=== PATIENT | female | born 1975 | race Caucasian/White ===

== ENCOUNTER 2017-08-18 22:35 | Emergency (ER) | payer OTHER ==
[~2017-08-18] VITALS: Ht 160 cm; Wt 55.0 kg
[~2017-08-18 22:35] MED LIST: CLEO1SOL EX; CLIN1CAP6 PO; DIFL150T PO; IBUP800T23 PO; MELO15 PO; MOTR200T PO
[2017-08-18 23:00] VITALS: BP 147/85; PULSE 128; RESP 18; TEMP 97.7
--- NOTE | 2017-08-18 23:26 | PD ---
HPI Chief Complaint: Psychiatric Symptoms Time Seen by Provider: 23:18 Travel History International Travel<30 days: No Contact w/Intl Traveler<30days: No Traveled to known affect area: No History of Present Illness HPI 42-year-old white female presents emergency department under Kothari act by PD. Patient allegedly has stated that she is having a meltdown. She allegedly had taken 9-50 mg Demerol tablets and one hydrocodone tablet. She has been drinking alcohol today. Patient states that she just recently quit her job 2 weeks ago. She has been having social issues at home with her significant other. She admits being depressed. She denies that this was a suicide attempt. She denies suicidal ideation. No homicidal ideation. Patient lives at home with her 18-year-old son. She denies any other drugs. No other toxic ingestions. No medical complaints otherwise. PFSH Past Medical History Cancer: No Cardiovascular Problems: No Diabetes: No Endocrine: No Genitourinary: No Hepatitis: No Hiatal Hernia: No Immune Disorder: No Musculoskeletal: Yes (back and neck pain due to hx of fractured neck) Neurologic: No Psychiatric: No Reproductive: No Respiratory: No Thyroid Disease: No Tetanus Vaccination: < 5 Years LMP: 08/04/2017 Past Surgical History AICD: No Gynecologic Surgery: Yes (left ovarian surgery tubaligation) Joint Replacement: No Pacemaker: No Social History Alcohol Use: Yes Tobacco Use: No Substance Use: Yes Allergies-Medications (Allergen,Severity, Reaction): Coded Allergies: No Known Allergies (Unverified , 04/17/15) Reported Meds & Prescriptions Reported Meds & Active Scripts Active Clindamycin Phosphate 1 % Gel 1 % EX BID Apply to new nodules as they appear. Use 2x daily in a thin layer only to affected area for 5-7 days. Clindamycin Hcl (Clindamycin HCl) 300 Mg Cap 300 Mg PO QID PRN Diflucan 150 mg (Fluconazole) 150 Mg Tab 1 Mg PO TODAY Please only take if you get a yeast infection from the antibiotics. Ibuprofen 800 Mg Tab 800 Mg PO Q8 PRN Reported Mobic 15 Mg Tab (Meloxicam) 15 Mg Tab 1 Tab PO DAILY take with food Ibuprofen 200 Mg Tab 200 Mg PO Q6H PRN Review of Systems General / Constitutional: No: Fever Eyes: No: Visual changes HENT: No: Headaches Cardiovascular: No: Chest Pain or Discomfort Respiratory: No: Shortness of Breath Gastrointestinal: No: Abdominal Pain Genitourinary: No: Dysuria Musculoskeletal: No: Pain Skin: No Rash Neurologic: No: Weakness Psychiatric: Positive: Depression, Mood Disorder, Substance Abuse, No: Anxiety , Suicidal Ideations, Disorder of Thought, Homicidal Ideation Endocrine: No: Polydipsia Hematologic/Lymphatic: No: Easy Bruising Physical Exam Narrative GENERAL: Well-nourished, well-developed patient. Patient is somnolent but responsive. She is handling her secretions well. She has a positive gag. SKIN: Warm and dry. HEAD: Normocephalic and atraumatic. EYES: No scleral icterus. No injection or drainage. ENT: No nasal drainage noted. Mucous membranes pink. Airway patent. NECK: Supple, trachea midline. Moves head freely without obvious discomfort. CARDIOVASCULAR: Regular tachycardic rate and rhythm without murmurs, gallops, or rubs. RESPIRATORY: Breath sounds equal bilaterally. No accessory muscle use. GASTROINTESTINAL: Abdomen soft, non-tender, nondistended. EXTREMITIES: No cyanosis or edema. BACK: Nontender without obvious deformity. No CVA tenderness. NEURO: Patient is alert and oriented. no sensorimotor deficits. Nonfocal. Somewhat slurred speech. Mildly ataxic. PSYCH: No delusions. No auditory or visual hallucinations. Data Data Last Documented VS Vital Signs Date Time Temp Pulse Resp B/P (MAP) Pulse Ox O2 Delivery O2 Flow Rate FiO2 08/19/17 02:35 84 19 102/59 (73) 95 Room Air 08/18/17 23:00 97.7 Orders Orders Complete Blood Count With Diff (08/18/17 22:59) Comprehensive Metabolic Panel (08/18/17 22:59) Urinalysis - C+S If Indicated (08/18/17 22:59) Psych Screen (08/18/17 22:59) Drug Screen, Random Urine (08/18/17 22:59) Alcohol (Ethanol) (08/18/17 22:59) Iv Access Insert/Monitor (08/18/17 23:19) Ecg Monitoring (08/18/17 23:19) Sodium Chlor 0.9% 1000 Ml Inj (Ns 1000 M (08/18/17 23:30) Ed Urine Pregnancytest Poc (08/18/17 23:19) Oximetry (08/18/17 23:19) Salicylates (Aspirin) (08/18/17 23:19) Tylenol (Acetaminophen) (08/18/17 23:09) Labs Laboratory Tests Test 08/18/17 23:09 08/18/17 23:30 White Blood Count 11.2 TH/MM3 Red Blood Count 4.04 MIL/MM3 Hemoglobin 13.3 GM/DL Hematocrit 39.0 % Mean Corpuscular Volume 96.6 FL Mean Corpuscular Hemoglobin 33.0 PG Mean Corpuscular Hemoglobin Concent 34.1 % Red Cell Distribution Width 13.5 % Platelet Count 253 TH/MM3 Mean Platelet Volume 7.6 FL Neutrophils (%) (Auto) 58.4 % Lymphocytes (%) (Auto) 35.2 % Monocytes (%) (Auto) 5.1 % Eosinophils (%) (Auto) 1.0 % Basophils (%) (Auto) 0.3 % Neutrophils # (Auto) 6.5 TH/MM3 Lymphocytes # (Auto) 3.9 TH/MM3 Monocytes # (Auto) 0.6 TH/MM3 Eosinophils # (Auto) 0.1 TH/MM3 Basophils # (Auto) 0.0 TH/MM3 CBC Comment DIFF FINAL Differential Comment Blood Urea Nitrogen 9 MG/DL Creatinine 0.62 MG/DL Random Glucose 95 MG/DL Total Protein 8.4 GM/DL Albumin 4.6 GM/DL Calcium Level 8.4 MG/DL Alkaline Phosphatase 69 U/L Aspartate Amino Transf (AST/SGOT) 22 U/L Alanine Aminotransferase (ALT/SGPT) 25 U/L Total Bilirubin 0.2 MG/DL Sodium Level 134 MEQ/L Potassium Level 3.5 MEQ/L Chloride Level 102 MEQ/L Carbon Dioxide Level 24.5 MEQ/L Anion Gap 8 MEQ/L Estimat Glomerular Filtration Rate 105 ML/MIN Salicylates Level 3.8 MG/DL Acetaminophen Level LESS THAN 2.0 MCG/ML Ethyl Alcohol Level 288 MG/DL Urine Opiates Screen NEG Urine Barbiturates Screen NEG Urine Amphetamines Screen NEG Urine Benzodiazepines Screen NEG Urine Cocaine Screen NEG Urine Cannabinoids Screen NEG MDM Medical Decision Making Medical Screen Exam Complete: Yes Emergency Medical Condition: Yes Medical Record Reviewed: Yes Interpretation(s) Laboratory Tests Test 08/18/17 23:09 08/18/17 23:30 White Blood Count 11.2 TH/MM3 Red Blood Count 4.04 MIL/MM3 Hemoglobin 13.3 GM/DL Hematocrit 39.0 % Mean Corpuscular Volume 96.6 FL Mean Corpuscular Hemoglobin 33.0 PG Mean Corpuscular Hemoglobin Concent 34.1 % Red Cell Distribution Width 13.5 % Platelet Count 253 TH/MM3 Mean Platelet Volume 7.6 FL Neutrophils (%) (Auto) 58.4 % Lymphocytes (%) (Auto) 35.2 % Monocytes (%) (Auto) 5.1 % Eosinophils (%) (Auto) 1.0 % Basophils (%) (Auto) 0.3 % Neutrophils # (Auto) 6.5 TH/MM3 Lymphocytes # (Auto) 3.9 TH/MM3 Monocytes # (Auto) 0.6 TH/MM3 Eosinophils # (Auto) 0.1 TH/MM3 Basophils # (Auto) 0.0 TH/MM3 CBC Comment DIFF FINAL Differential Comment Blood Urea Nitrogen 9 MG/DL Creatinine 0.62 MG/DL Random Glucose 95 MG/DL Total Protein 8.4 GM/DL Albumin 4.6 GM/DL Calcium Level 8.4 MG/DL Alkaline Phosphatase 69 U/L Aspartate Amino Transf (AST/SGOT) 22 U/L Alanine Aminotransferase (ALT/SGPT) 25 U/L Total Bilirubin 0.2 MG/DL Sodium Level 134 MEQ/L Potassium Level 3.5 MEQ/L Chloride Level 102 MEQ/L Carbon Dioxide Level 24.5 MEQ/L Anion Gap 8 MEQ/L Estimat Glomerular Filtration Rate 105 ML/MIN Salicylates Level 3.8 MG/DL Acetaminophen Level LESS THAN 2.0 MCG/ML Ethyl Alcohol Level 288 MG/DL Urine Opiates Screen NEG Urine Barbiturates Screen NEG Urine Amphetamines Screen NEG Urine Benzodiazepines Screen NEG Urine Cocaine Screen NEG Urine Cannabinoids Screen NEG Differential Diagnosis MDM: High Differential diagnoses: Schizophrenia, schizoaffective disorder, bipolar, anxiety, depression, adjustment reaction, mood disorder NOS, ODD, depressive disorder NOS, psychosis NOS, substance induced mood disorder, infection, electrolyte abnormality, malingering. Narrative Course Mental health screening discussed with the patient. Psychiatric screen ordered. Patient's placed on a sat monitor as well as a desk monitor. IV access is obtained. Patient was given a liter bolus of normal saline. Routine laboratory tests for analysis. Patient will be monitored. The patient has been monitored now for over 4 hours. She is alert and arousable. I see no evidence of any toxic ingestion. The patient is considered medically stable. This is medical clearance for psychiatric admission, nontoxic overdose Diagnosis Primary Impression: Medical clearance for psychiatric admission Additional Impression: Nontoxic overdose Condition: Stable Ronnie Taylor Aug 18, 2017 23:26
[2017-08-18] MEDS ORDERED: SODIUM CHLOR 0.9% 1000 ML INJ 1,000 ML IV ONE (23:30)
[2017-08-18 23:54] VITALS: BP 141/88; PULSE 131; RESP 20; O2SAT 100
[2017-08-18 23:55] VITALS: RESP 20; O2SAT 100
[2017-08-19 00:04] LABS: AUTOMATED NEUTROPHIL # 6.5 TH/MM3 (1.8-7.7); BASOPHIL % 0.3 % (0.0-2.0); EOSINOPHIL # 0.1 TH/MM3 (0-0.4); HEMOGLOBIN 13.3 GM/DL (11.6-15.3); LYMPH % 35.2 % (9.0-44.0); LYMPHOCYTE # 3.9 TH/MM3 (1.0-4.8); MEAN CELL VOLUME 96.6 FL (80.0-100.0); MEAN CORPUSCULAR HGB CONC 34.1 % (32.0-36.0); MEAN PLATELET VOLUME 7.6 FL (7.0-11.0); MONO % 5.1 % (0.0-8.0); MONOCYTE # 0.6 TH/MM3 (0-0.9); NEUT % 58.4 % (16.0-70.0); PLATELET COUNT 253 TH/MM3 (150-450); RED BLOOD COUNT 4.04 MIL/MM3 (4.00-5.30); RED CELL DISTRIBUTION WIDTH 13.5 % (11.6-17.2); WHITE BLOOD COUNT 11.2 TH/MM3 (4.0-11.0)
[2017-08-19 00:15] LABS: ACETAMINOPHEN LESS THAN 2.0 MCG/ML (10.0-30.0); ALBUMIN 4.6 GM/DL (3.4-5.0); ALT (GPT) 25 U/L (10-53); AST (GOT) 22 U/L (15-37); BICARBONATE 24.5 MEQ/L (21.0-32.0); BLOOD UREA NITROGEN 9 MG/DL (7-18); CALCIUM 8.4 MG/DL (8.5-10.1); CHLORIDE 102 MEQ/L (98-107); CREATININE 0.62 MG/DL (0.50-1.00); GLOMERULAR FILTRATION RATE 105 ML/MIN (>89); GLUCOSE,RANDOM 95 MG/DL (74-106); SODIUM (NA) 134 MEQ/L (136-145)
[2017-08-19 00:17] LABS: ALKALINE PHOSPHATASE 69 U/L (45-117); TOTAL BILIRUBIN ADULT 0.2 MG/DL (0.2-1.0); TOTAL PROTEIN 8.4 GM/DL (6.4-8.2)
[2017-08-19 02:35] VITALS: BP 102/59; PULSE 84; RESP 19; O2SAT 95
[2017-08-19 07:30] VITALS: BP 108/68; PULSE 86; RESP 17; O2SAT 96
[2017-08-19 11:33] VITALS: BP 138/70; PULSE 91; RESP 18; TEMP 98.7; O2SAT 99
[2017-08-19 15:55] VITALS: BP 157/85; PULSE 87; RESP 16; TEMP 98.3; O2SAT 98
--- NOTE | 2017-08-19 16:28 | PD ---
History of Present Illness Chief Complaint: Psychiatric Symptoms Time Seen by Provider: 16:00 Travel History International Travel<30 Days: No Contact w/Intl Traveler<30days: No Known affected area: No Legal Status Legal Status: Kothari Act Kothari Act Signed By: Susi Schuster Kothari Act Comment: 08/18/2017 1000 PM D/S [facility] #[id number] C/N [phone] History of Present Illness: History of Present Illness HPI 42-year-old white, single female with history of alcohol use disorder who presents emergency department under Kothari act by PD. The Kothari act report alleges that the patient was found by the police " in a highly intoxicated state and that she consumed 9 Demerol and 2 hydrocodone pills. She advised the police that she was having a meltdown over her life hardships. She advised her family "she is fucking done" . Patient on arrival to the ED was intoxicated with a blood alcohol level of 288. The patient was allowed to sober up clinically in safe environment. She presented no suicidality. EMR is reviewed. No previous contact with [facility] psychiatry Patient is seen in [facility]. She is clinically sober with no signs of withdrawal. She is alert and oriented. Engaging and cooperative. Her speech is clear and logical. Denies suicidal or homicidal ideation intent or plan she reports that she has been feeling depressed since she quit her job 2 weeks ago. She is unable to drive therefore he is very difficult for her to be able to get a new job closer her home. She also admits a relapse after having 7 years of sobriety. She is now drinking a 12 pack of beer 2-3 times per week. Patient is interested in seeking treatment with Vivitrol and she will be provided information on to how to access treatment. Patient reports she last took psychiatric medication many years ago as a teenager. PFSH Past Medical History Cancer: No Cardiovascular Problems: No Diabetes: No Endocrine: No Genitourinary: No Hepatitis: No Hiatal Hernia: No Immune Disorder: No Musculoskeletal: Yes (back and neck pain due to hx of fractured neck) Neurologic: No Psychiatric: No Reproductive: No Respiratory: No Thyroid Disease: No Tetanus Vaccination: < 5 Years ?: Not LMP: 08/04/2017 Past Surgical History AICD: No Gynecologic Surgery: Yes (left ovarian surgery tubaligation) Joint Replacement: No Pacemaker: No Other Surgery: Yes Psychiatric History Psychiatric History Hx Psychiatric Treatment: Reports received treatment for depression as an adolescent. History of Inpatient Treatment: No Guns or firearms in home: No Social History Single, female lives with her 18-year-old son and her boyfriend. 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 Hx Alcohol Use: Yes Hx Tobacco Use: No Hx Substance Use: Yes Substance Use Type: Alcohol Hx of Substance Use Treatment: No Family Psychiatric History Mother with reported history of depression Allergies-Medications (Allergen,Severity, Reaction): Coded Allergies: No Known Allergies (Unverified , 04/17/15) Reported Meds & Prescriptions Reported Meds & Active Scripts Active Clindamycin Phosphate 1 % Gel 1 % EX BID Apply to new nodules as they appear. Use 2x daily in a thin layer only to affected area for 5-7 days. Clindamycin Hcl (Clindamycin HCl) 300 Mg Cap 300 Mg PO QID PRN Diflucan 150 mg (Fluconazole) 150 Mg Tab 1 Mg PO TODAY Please only take if you get a yeast infection from the antibiotics. Ibuprofen 800 Mg Tab 800 Mg PO Q8 PRN Reported Mobic 15 Mg Tab (Meloxicam) 15 Mg Tab 1 Tab PO DAILY take with food Ibuprofen 200 Mg Tab 200 Mg PO Q6H PRN Review of Systems Psychiatric: DENIES: Anxiety, Confusion, Mood changes, Depression, Hallucinations, Agitation, Suicidal Ideation, Homicidal Ideation, Delusions Except as stated in HPI: all other systems reviewed are Neg Mental Status Examination Appearance: Disheveled Consciousness: Alert Orientation: x4 Motor Activity: Normal gait Speech: Unremarkable Language: Adequate Fund of Knowledge: Adequate Attention and Concentration: Adequate Memory: Unremarkable Mood: Appropriate Affect: Appropriate Thought Process & Associations: Intact, Logical, Goal directed Thought Content: Appropriate Hallucination Type: None Delusion Type: None Suicidal Ideation: No Suicidal Plan: No Suicidal Intention: No Homicidal Ideation: No Homicidal Plan: No Homicidal Intention: No Insight: Fair Judgment: Adequate [facility] Medical Decision Making Medical Record Reviewed: Yes Assessment/Plan History of Present Illness HPI 42-year-old female under a Kothari act after it was reported that she took 9 Demerol pills and 2.5 hydrocodone pills along with alcohol as a suicidal gesture. Patient once clinically sober and denies any suicidal or homicidal ideation, intent or plan. She acknowledges that her current relapse and continued use of alcohol contributed to her suicidal gesture. Patient is requesting discharge and I have no grounds to keep her under the Kothari act. She has requested information on the patrol it will be provided to her. The patient is psychiatrically clear for discharge from the ED as a Kothari act has been lifted. The patient is future oriented and states that she feels terrible that she frighten her son and her boyfriend. She contracts for safety and agrees to return to the ED if any changes. Patient is clinically sober. Denies any suicidal or homicidal ideation, intent or plan. She is requesting discharge. She is interested in treatment with Vivitrol. Orders Orders Complete Blood Count With Diff (08/18/17 22:59) Comprehensive Metabolic Panel (08/18/17 22:59) Urinalysis - C+S If Indicated (08/18/17 22:59) Psych Screen (08/18/17 22:59) Drug Screen, Random Urine (08/18/17 22:59) Alcohol (Ethanol) (08/18/17 22:59) Iv Access Insert/Monitor (08/18/17 23:19) Ecg Monitoring (08/18/17 23:19) Sodium Chlor 0.9% 1000 Ml Inj (Ns 1000 M (08/18/17 23:30) Ed Urine Pregnancytest Poc (08/18/17 23:19) Oximetry (08/18/17 23:19) Salicylates (Aspirin) (08/18/17 23:19) Tylenol (Acetaminophen) (08/18/17 23:09) Diet Regular Basic (08/19/17 Breakfast) Diet Regular Basic (08/19/17 Lunch) Diet Regular Basic (08/19/17 Dinner) Us Arm Venous Doppler (08/19/17 ) Results Vital Signs Date Time Temp Pulse Resp B/P (MAP) Pulse Ox O2 Delivery O2 Flow Rate FiO2 08/19/17 15:55 98.3 87 16 157/85 (109) 98 Room Air 08/19/17 11:33 98.7 91 18 138/70 (92) 99 Room Air 08/19/17 07:30 86 17 108/68 (81) 96 Room Air 08/19/17 02:35 84 19 102/59 (73) 95 Room Air 08/18/17 23:55 20 100 Room Air 08/18/17 23:54 131 20 141/88 (105) 100 Room Air 08/18/17 23:00 97.7 128 18 147/85 (105) Laboratory Tests Test 08/18/17 23:09 08/18/17 23:30 White Blood Count 11.2 Red Blood Count 4.04 Hemoglobin 13.3 Hematocrit 39.0 Mean Corpuscular Volume 96.6 Mean Corpuscular Hemoglobin 33.0 Mean Corpuscular Hemoglobin Concent 34.1 Red Cell Distribution Width 13.5 Platelet Count 253 Mean Platelet Volume 7.6 Neutrophils (%) (Auto) 58.4 Lymphocytes (%) (Auto) 35.2 Monocytes (%) (Auto) 5.1 Eosinophils (%) (Auto) 1.0 Basophils (%) (Auto) 0.3 Neutrophils # (Auto) 6.5 Lymphocytes # (Auto) 3.9 Monocytes # (Auto) 0.6 Eosinophils # (Auto) 0.1 Basophils # (Auto) 0.0 CBC Comment DIFF FINAL Differential Comment Blood Urea Nitrogen 9 Creatinine 0.62 Random Glucose 95 Total Protein 8.4 Albumin 4.6 Calcium Level 8.4 Alkaline Phosphatase 69 Aspartate Amino Transf (AST/SGOT) 22 Alanine Aminotransferase (ALT/SGPT) 25 Total Bilirubin 0.2 Sodium Level 134 Potassium Level 3.5 Chloride Level 102 Carbon Dioxide Level 24.5 Anion Gap 8 Estimat Glomerular Filtration Rate 105 Salicylates Level 3.8 Acetaminophen Level LESS THAN 2.0 Ethyl Alcohol Level 288 Urine Opiates Screen NEG Urine Barbiturates Screen NEG Urine Amphetamines Screen NEG Urine Benzodiazepines Screen NEG Urine Cocaine Screen NEG Urine Cannabinoids Screen NEG Diagnosis Primary Impression: Nontoxic overdose Additional Impressions: alcohol abuse with intoxication Alcohol-induced mood disorder Psychiatrically Cleared: Yes Med/ Other Pt Specific Info: No Meds Exist/No RX given Disposition: 01 DISCHARGE HOME Condition: Stable Problem Qualifiers Wanda Gutierrez Aug 19, 2017 16:28
--- NOTE | 2017-08-19 17:32 | PD ---
Physical Exam Date Seen by Provider: Aug 19, 2017 Time Seen by Provider: 17:30 Narrative For full history and physical examination please see previous providers note. Data Data Last Documented VS Vital Signs Date Time Temp Pulse Resp B/P (MAP) Pulse Ox O2 Delivery O2 Flow Rate FiO2 08/19/17 15:55 98.3 87 16 157/85 (109) 98 Room Air Orders Orders Complete Blood Count With Diff (08/18/17 22:59) Comprehensive Metabolic Panel (08/18/17 22:59) Urinalysis - C+S If Indicated (08/18/17 22:59) Psych Screen (08/18/17 22:59) Drug Screen, Random Urine (08/18/17 22:59) Alcohol (Ethanol) (08/18/17 22:59) Iv Access Insert/Monitor (08/18/17 23:19) Ecg Monitoring (08/18/17 23:19) Sodium Chlor 0.9% 1000 Ml Inj (Ns 1000 M (08/18/17 23:30) Ed Urine Pregnancytest Poc (08/18/17 23:19) Oximetry (08/18/17 23:19) Salicylates (Aspirin) (08/18/17 23:19) Tylenol (Acetaminophen) (08/18/17 23:09) Diet Regular Basic (08/19/17 Breakfast) Diet Regular Basic (08/19/17 Lunch) Diet Regular Basic (08/19/17 Dinner) Us Arm Venous Doppler (08/19/17 ) Ed Discharge Order (08/19/17 17:29) Labs Laboratory Tests Test 08/18/17 23:09 08/18/17 23:30 White Blood Count 11.2 TH/MM3 Red Blood Count 4.04 MIL/MM3 Hemoglobin 13.3 GM/DL Hematocrit 39.0 % Mean Corpuscular Volume 96.6 FL Mean Corpuscular Hemoglobin 33.0 PG Mean Corpuscular Hemoglobin Concent 34.1 % Red Cell Distribution Width 13.5 % Platelet Count 253 TH/MM3 Mean Platelet Volume 7.6 FL Neutrophils (%) (Auto) 58.4 % Lymphocytes (%) (Auto) 35.2 % Monocytes (%) (Auto) 5.1 % Eosinophils (%) (Auto) 1.0 % Basophils (%) (Auto) 0.3 % Neutrophils # (Auto) 6.5 TH/MM3 Lymphocytes # (Auto) 3.9 TH/MM3 Monocytes # (Auto) 0.6 TH/MM3 Eosinophils # (Auto) 0.1 TH/MM3 Basophils # (Auto) 0.0 TH/MM3 CBC Comment DIFF FINAL Differential Comment Blood Urea Nitrogen 9 MG/DL Creatinine 0.62 MG/DL Random Glucose 95 MG/DL Total Protein 8.4 GM/DL Albumin 4.6 GM/DL Calcium Level 8.4 MG/DL Alkaline Phosphatase 69 U/L Aspartate Amino Transf (AST/SGOT) 22 U/L Alanine Aminotransferase (ALT/SGPT) 25 U/L Total Bilirubin 0.2 MG/DL Sodium Level 134 MEQ/L Potassium Level 3.5 MEQ/L Chloride Level 102 MEQ/L Carbon Dioxide Level 24.5 MEQ/L Anion Gap 8 MEQ/L Estimat Glomerular Filtration Rate 105 ML/MIN Salicylates Level 3.8 MG/DL Acetaminophen Level LESS THAN 2.0 MCG/ML Ethyl Alcohol Level 288 MG/DL Urine Opiates Screen NEG Urine Barbiturates Screen NEG Urine Amphetamines Screen NEG Urine Benzodiazepines Screen NEG Urine Cocaine Screen NEG Urine Cannabinoids Screen NEG MDM Medical Record Reviewed: Yes Supervised Visit with ANIL: No Narrative Course Patient is a 42-year-old female presenting under Saniya vergara for psychiatric evaluation. She was seen and evaluated the emergency department, medically cleared. She was then moved to [facility] for psychiatric evaluation. Please see psychiatry notes. Patient complained of right arm pain secondary to a tourniquet being left on for an unknown amount of time. Ultrasound was ordered however patient refused to wait for the test to be performed. Patient was encouraged to stay and have the test performed she continued to decline. Patient was discharged. Diagnosis Primary Impression: Nontoxic overdose Additional Impressions: Alcohol-induced mood disorder alcohol abuse with intoxication Referrals: [facility] Patient Instructions: General Instructions, Mood Disorders (ED), Alcohol Use Disorder (ED) Departure Forms: Tests/Procedures Additional Instruction: Follow-up with Edd Gustafson Follow-up with your primary doctor Return to emergency department for any new or worsening symptoms Med/Other Pt SpecificInfo: No Change to Meds Disposition: 01 DISCHARGE HOME Condition: Stable BobbyJohannaEllie [facility] Aug 19, 2017 17:32
== END 2017-08-19 17:33 | disposition home or self-care (01) ==
LOC: NEPD 22:35 → NEPJ 08-19 17:33
DX: T50.904A Poisoning by unspecified drugs, medicaments and biological substances, undetermined, initial encounter (principal); F10.129 Alcohol abuse with intoxication, unspecified; F10.14 Alcohol abuse with alcohol-induced mood disorder
CPT/HCPCS: 80053; 80307; 84703; 85025; 96360; 96361; 99283; J7030; 81001